=== PATIENT | female | born 1950 | race Caucasian/White ===

== ENCOUNTER 2016-12-03 18:20 | Inpatient (IN) | payer MEDICARE ==
--- NOTE | ~2016-12-03 | CR72 ---
[facility] A Service of [facility] RADIOLOGY TEXT RESULTS PATIENT: KAREN GRAHAM LOCATION: [facility] : [birth year] UNIT #: [id number] AGE: [address]: Dianna Centeno MD SEX: F ORDER DR: [id number] [facility] [address] [place], [place] [address] [id number] E MR#: [id number] Acc #: [id number] NAME: KAREN GRAHAM. : 1950 SEX: F STUDY DATE/TIME: 12/03/2016 16:41 UNIT: [facility] ROOM: STUDY DESCRIPTION: CR Chest Single View Portable Attending Physician: Dianna Centeno M.D. Ordering Physician: Dianna Centeno M.D. Primary Care Physician: No Primary Care Physician MEDICAL IMAGING REPORT This report is preliminary unless electronic signature is present EXAM Frontal chest 12/03/2016 INDICATIONS 66-year-old female with pneumonia, weakness, cough, congestion, symptoms began today, hypertension. Frontal chest compared with 11/30/2016 FINDINGS Cardiac silhouette is stable. The vascularity is unremarkable and the left lung is clear. Faint atelectasis or infiltrate in the upper lungs on the right stable to perhaps slightly improved. No effusion, pneumothorax or new dense consolidation. IMPRESSION Faint asymmetric atelectasis or infiltrate in the upper lung zone on the right stable to minimally decreased. No new opacities or other significant change. Dictated by... Karthikeyan Collins M.D. THIS IS AN ELECTRONICALLY VERIFIED REPORT Karthikeyan Collins M.D. at 12/03/2016 8:11 PM Ron TD: 12/03/2016 18:35 JOB #: [id number] MEDICAL IMAGING REPORT Page 1 of 1 COPY
--- NOTE | ~2016-12-03 | CT71 ---
[facility] A Service of [facility] RADIOLOGY TEXT RESULTS PATIENT: KAREN GRAHAM LOCATION: [facility] [id number] : [birth year] UNIT #: [id number] AGE: [address]: Samantha Sutton MD SEX: F ORDER DR: [id number] [facility] [address] [place], [place] [address] [id number] E MR#: [id number] Acc #: [id number] NAME: KAREN GRAHAM. : 1950 SEX: F STUDY DATE/TIME: 12/03/2016 17:01 UNIT: [facility] ROOM: STUDY DESCRIPTION: CT Head Wo Contrast Attending Physician: Dianna Centeno M.D. Ordering Physician: Dianna Centeno M.D. Primary Care Physician: No Primary Care Physician MEDICAL IMAGING REPORT This report is preliminary unless electronic signature is present EXAM Head CT without contrast 12/03/2016 HISTORY Weakness and confusion, onset today. TECHNIQUE Axial images were obtained without contrast and compared to previous scan from 12/19/2014. This CT exam was performed with one or more of the following radiation dose reduction techniques: automatic exposure control, adjustment of mA and/or kV according to patient size, and iterative reconstruction. FINDINGS Generalized atrophy is seen. There are chronic ischemic changes around ventricles on both sides. There is no evidence of mass lesion, hemorrhage or edema. There is a small focus of higher density in the right frontal lobe but this was noted on the previous scan and is unchanged. It likely represents a minimal calcification from previous vascular insult. No acute findings are identified. Extraaxial structures are unremarkable. IMPRESSION Atrophy with chronic ischemic changes bilaterally. No acute findings. Dictated by... Chito Jaimes M.D. THIS IS AN ELECTRONICALLY VERIFIED REPORT Chito Jaimes M.D. at 12/03/2016 10:17 PM ANDRES/felicita TD: 12/03/2016 18:36 [facility] A Service [facility] RADIOLOGY TEXT RESULTS PATIENT: KAREN GRAHAM LOCATION: [facility] [id number] : [birth year] UNIT #: [id number] AGE: [address]: Samantha Sutton MD SEX: F ORDER DR: JOB #: [id number] MEDICAL IMAGING REPORT Page 1 of 1 COPY
--- NOTE | ~2016-12-03 | HP ---
Unit #: [id number] #: [id number] Patient: KAREN GRAHAM [id number] [address] [place], [place] [address] [id number] I MR#: [id number] NAME: KAREN GRAHAM. ROOM: 93082 Age: 66 Sex: F Admission Date: 12/03/2016 : 1950 Attending Physician: Samantha Sutton M.D. Primary Care Physician: Primary Care Physician No HISTORY AND PHYSICAL CHIEF COMPLAINT Confusion. HISTORY OF PRESENT ILLNESS This 66-year-old female with cardiomyopathy, chronic pain, history of iron-deficiency anemia, is admitted for confusion. The patient was just discharged from [facility] today after treatment for what I was told was for congestive heart failure and pneumonia. Apparently, she had some psych issues as well. Will obtain records. After arriving home, her roommate noticed that she was confused and called EMS who then brought the patient, for some reason, to this hospital as opposed to [facility]. Patient is confused, hallucinating, and is oriented only to person. She recognizes, however, that she is confused. Her workup thus far is fairly unrevealing except that she is more anemic than usual. Denies melena or hematochezia, only complains of her chronic knee pain. Urine toxicology screen is positive for methadone which the patient reportedly takes, I will obtain a [facility] report. PAST MEDICAL HISTORY 1. Congestive heart failure, ejection fraction 10% to 15%, I believe this is related to ischemic cardiomyopathy although I do not have recent records from [facility]. 2. Mild B12 deficiency. 3. Iron-deficiency anemia requiring multiple transfusions. 4. Chronic pain on methadone. 5. Anxiety and depression. 6. History of hypothyroidism. 7. Hypertension. 8. DJD. 9. Peripheral vascular disease, status post left fem-pop surgery. 10. Arthroscopic knee surgery. 11. Admission 04/2013 for altered mental status. MRI at that time revealed an old ischemic insult and focal 5 x 5.5 mm lesion with hemosiderin deposit in the right frontal lobe. ALLERGIES No known drug allergies. HOME MEDICATIONS I have a discharge medication sheet that the patient brought with her listin. Symbicort 160/4.5 two puffs b.i.d. 2. Lipitor 40 mg daily. Unit #: [id number] #: [id number] Patient: KAREN GRAHAM 3. Coreg 6.25 mg b.i.d. 4. Omnicef 300 mg b.i.d. 5. Celexa 20 mg daily. 6. Plavix 75 mg daily. 7. Doxepin 50 mg two tablets h.s. 8. Lasix 40 mg daily. 9. Atarax 25 mg t.i.d. 10. Zyprexa 5 mg two tablets h.s. SOCIAL HISTORY The patient lives with a roommate. Stopped smoking about 20 years ago. Does not drink alcohol. FAMILY HISTORY CAD. REVIEW OF SYSTEMS Difficult to obtain as patient is pleasantly confused. PHYSICAL EXAMINATION VITAL SIGNS: Temperature 98.2, pulse 69, respirations 15, blood pressure 134/63, O2 saturation 96% on room air. GENERAL: Pleasantly confused 66-year-old female currently in no acute distress. HEENT: Eyes PERRLA. Extraocular muscles are intact. Pharynx benign. NECK: Supple without adenopathy or thyromegaly. CHEST: Clear. HEART: Normal S1, S2 without S3, S4 or murmur. ABDOMEN: Bowel sounds are present. No hepatosplenomegaly, tenderness or masses. EXTREMITIES: Without clubbing, cyanosis, or edema. NEUROLOGIC: Awake, alert. She is oriented to person and knows that she is in a [facility] but does not know the name of the hospital. Cranial nerves are intact. She has equal strength throughout. However, when I do sit her up she does have some balance issues. Negative pronator drift. DIAGNOSTIC STUDIES LABORATORY: Hematocrit 26.1 down from 29.6 two years ago, normal white count, MCV is 64, normal platelet count. SMA-12 BUN 30, chloride 112, CO2 is 17. Ammonia 9. Lactic acid normal. Alcohol negligible. ABG pH 7.41, pCO2 of 25, pO2 of 99, O2 saturation is 95.9%. Urine toxicology screen positive for methadone and TCA. Urinalysis trace leukocyte esterase without significant white or red cells. IMAGING: Head CT atrophy. Bilateral small vessel ischemic changes. Chest x-ray is improved. CARDIOVASCULAR: EKG shows a normal sinus rhythm, rate 61, with Q's noted inferiorly. T-wave inversion V4 through V6. ASSESSMENT 1. Confusion, possibly related to methadone and psych medications. Rule out cerebrovascular accident. 2. Iron-deficiency anemia with hemoglobin currently of 7.2. 3. Chronic pain, reportedly on methadone. 4. Anxiety and depression. Unit #: [id number] #: [id number] Patient: KAREN GRAHAM 5. Recent admission to [facility]. Patient was discharged today. She apparently was treated for congestive heart failure and pneumonia. There is some mention that she had a methadone withdrawal, depression, and acute kidney injury while hospitalized. Will obtain records. 6. History of likely ischemic cardiomyopathy. 7. Peripheral vascular disease, status post left fem-pop. PLAN 1. Transfuse, obtain Hemoccult. 2. MRI of the brain. 3. Will obtain cardiac enzymes. 4. Recent records from [facility] will be obtained. 5. SCDs for DVT prophylaxis. 6. Obtain EILEEN report. 7. Further plans pending records from [facility] and MRI scan. Dictated by Marisabel Cordova/parmjit TD: 12/03/2016 21:30 JOB #: [id number] HISTORY AND PHYSICAL Page 1 of 1 X Samantha Sutton MD X HISTORY AND PHYSICAL
--- NOTE | ~2016-12-03 | DS ---
Unit #: [id number] #: [id number] Patient: KAREN GRAHAM [id number] [address] [address] [id number] I MR#: [id number] NAME: KAREN GRAHAM ROOM: 301 Age: 66 Sex: F Admission Date: 12/03/2016 : 1950 Discharge Date: 12/04/2016 Attending Physician: Emily Foster M.D. Primary Care Physician: No Primary Care Physician DISCHARGE SUMMARY PRINCIPAL DIAGNOSES 1. Acute visual hallucinations, psychiatric in origin. 2. Hypokalemia. 3. Chronic nonanion gap metabolic acidosis, compensatory for respiratory alkalosis, improving. 4. Chronic iron deficiency anemia, status post transfusion of one unit of packed red blood cells. Discharge hemoglobin 8.3. 5. Severe depression with associated psychosis followed by Dr. Steve. 6. Chronic diastolic congestive heart failure with ejection fraction of 60% to 65% per echocardiogram on December 01, 2016, at [facility]. 7. Recent right upper lobe pneumonia, maintained on antibiotics. 8. Chronic pain syndrome maintained on methadone. 9. Hyperlipidemia. 10. History of vitamin B12 deficiency. 11. History of hypothyroidism with stable TSH. 12. Degenerative joint disease. 13. Peripheral vascular disease, status post left femoropopliteal surgery. CONSULTANTS None. DIAGNOSTIC STUDIES IMAGING: CT scan of the head without contrast on December 03, 2016, with generalized atrophy. Chronic ischemic changes around the ventricles bilaterally. Small focus of density in the right frontal lobe that is chronic. Chest x-ray on December 03, 2016, with asymmetric infiltrate in the right upper lung zone. CLINICAL HISTORY AND HOSPITAL COURSE Ms. Graham is a 66-year-old, female just discharged from [facility] on December 03, 2016, after presenting with a mild diastolic CHF exacerbation and right upper lobe pneumonia. Patient presents back to our facility with increasing confusion per her roommate. Please refer to H and P for further details. CT scan of the head without contrast was unremarkable and patient was subsequently admitted. Today, patient is significantly confused with associated visual hallucinations and psychosis. I did discuss her discharge summary with my partners at [facility] and patient appears to essentially be at her medical baseline compared to discharge yesterday. Patient was actually being seen by Dr. Steve at [facility] with whom I did speak this morning. Patient (1) depression and he feels she needs inpatient Unit #: [id number] #: [id number] Patient: KAREN GRAHAM treatment. Patient's discharge hemoglobin yesterday was 7.3, which matched presentation here yesterday. Patient has received one unit of packed red blood cells and hemoglobin is now up to 8.1. She will continue on oral iron therapy upon discharge here and can have any necessary EGD and/or colonoscopy as an outpatient. There was concern that perhaps patient had a stroke, but her neurologic exam, with the exception of visual hallucinations, is nonfocal and I do not feel that this represents stroke. I think this is more likely psychiatric in origin. I am going to place the patient back on her medications per discharge yesterday from [facility] and have [facility] evaluate for transfer. MRI of the brain is not necessary at this time. I will note patient is also mildly hypokalemic and this has been replaced orally and I will recheck prior to transfer to [facility]. DISCHARGE CONDITION Stable. DISCHARGE STATUS Transferred to [facility]. DISCHARGE MEDICATIONS 1. Potassium chloride 20 mEq p.o. daily. 2. Vistaril 25 mg p.o. t.i.d. 3. Zyprexa 10 mg at bedtime. 4. Plavix 75 mg daily. 5. Methadone 5 mg p.o. t.i.d. 6. Ferrous sulfate 325 mg b.i.d. 7. Lipitor 40 mg at bedtime. 8. Lasix 40 mg daily. 9. Omnicef 300 mg p.o. b.i.d. to stop after dose on December 10, 2016. 10. Dulera 200/5 mcg 2 puffs b.i.d. 11. Coreg 6.25 mg b.i.d. 12. Doxepin 100 mg daily. 13. Celexa 20 mg daily. DISCHARGE INSTRUCTIONS 1. Patient instructed to follow a heart healthy diet. 2. She can increase her activity as tolerated. 3. Followup: Patient will follow up per Dr. Steve's recommendations. Otherwise, she is to follow up with physicians as determined upon discharge from [facility] yesterday, December 03, 2016. Dictated by... Marisabel Simon/cuate TD: 12/04/2016 12:49 JOB #: [id number] Unit #: [id number] #: [id number] Patient: KAREN GRAHAM DISCHARGE SUMMARY Page 1 of 1 X Emily Foster MD X DISCHARGE SUMMARY
--- NOTE | ~2016-12-03 | EKG ---
PATIENT: KAREN GRAHAM UNIT #: [id number] Ventricular Rate: 61 BPM Atrial Rate: 61 BPM P-R Interval: 176 ms QRS Duration: 106 ms Q-T Interval: 460 ms QTC Calculation(Bezet): 463 ms P [place]: 50 degrees Calculated R [place]: 15 degrees Calculated T [place]: 31 degrees Diagnosis Line: Normal sinus rhythm Diagnosis Line: Biatrial enlargement Diagnosis Line: Inferior infarct (cited on or before 19-APR-2013) Diagnosis Line: T wave abnormality, consider lateral ischemia Diagnosis Line: Abnormal ECG Diagnosis Line: When compared with ECG of 19-DEC-2014 00:16, Diagnosis Line: Vent. rate has decreased BY 45 BPM Diagnosis Line: T wave inversion now evident in Anterior leads Diagnosis Line: Confirmed by MARIELOS SAMAYOA MD ([id number]) on Diagnosis Line: 12/03/2016 9:40:19 PM INTERPRETING MD: MONICA
--- NOTE | ~2016-12-03 | A ---
[facility] Therapy DATE: 12/04/16 Patient: KAREN GRAHAM Physician: RORY Address: [address] [place] [address] Room/Bed: [address] [place] [address], Zip: [place] [address] Admit Date: 12/03/16 Date of : [birth year] Height: 5 0 Weight: 138 63 NUTRITIONAL ASSESSMENT: REASON: 3 points malnutrition risk score re: 15 lb unintentional weight loss Admitting Dx: 66 y/o female admitted with confusion, anemia PMH: DJD, HTN, CHF, PVD, DEIDRA, chronic pain, cardiomyopathy, hypothyroidism, mild B12 deficiency, anxiety/depression, PNA Anthropometrics: Ht: 60", Wt: 63 kg (138 lbs), BMI: 27 (overweight) Labs: K+ 2.9, BUN 24 Meds: Methadone, Furosemide, Coreg, psych meds noted I/O & Bowel function: LBM unknown Skin Integrity: No nutritionally significant issues, no edema Assessment: Chart reviewed, eventes noted. See admitting dx and PMH as stated above. Patient remains pleasantly confused, needs continuous redirection. She is not appropriate for RD interview at this time, assessing due to reported 15 lb weight loss during malnutrition screen. Discharged yesterday from [facility], where she was treated for CHF and PNA, psych issues noted. CT showed nothing acute, confusion likely 2' methadone/psych meds per MD. Patient was transfused due to Hgb 7.2, is now 8.1. Past weights range from 133-152 lbs, current weight is 138 lbs. She is on a healthy heart diet. See RD recs below, will follow hospital course. Dx: Unintentional weight loss r/t unknown etiology AEB 3 points malnutrition risk score. Intervention: Replace K+, change to 2g sodium diet, + Vit B12, Ensure BID? Monitoring, Evaluation and Goals: 1. PO intake > 50% of meals. 2. Prevent further unintentional weight loss. 3. Improvement in labs (lytes, hemoglobin). Monitor: Per protocol, criteria to determine if above goals met Recommendations: 1. Please change diet to 2g sodium so that the patient is not restricted with fat and [facility] Therapy DATE: 12/04/16 Patient: KAREN GRAHAM Physician: LOMANN Address: [address] [place] [address] Room/Bed: 301-01 [facility], Zip: [place] [address] Admit Date: 12/03/16 Date of : [birth year] Height: 5 0 Weight: 138 63 cholesterol intake. Agree with sodium restriction noting CHF. 2. Replace lytes prn (K+ low). 3. Consider adding Vitamin B12 noting patient's hx of mild B12 deficiency. 4. Please monitor PO intake; if < 50% of meals order Ensure Enlive BID. RD will follow hospital course Moderate nutrition risk Respectfully, Estephania Roach, DARIAN, LD [employer] [facility] [employer] cc: client file
[2016-12-03 16:51] LABS: BASOPHIL# 0.1 X10e3 (0-0.3); BASOPHIL% 1.8 % (0-2.5); EOSINOPHIL# 0.1 X10e3 (0-0.7); EOSINOPHIL% 1.2 % (0.0-7.0); HEMATOCRIT 26.1 % (35.0-45.0); HEMOGLOBIN 7.2 gm/dL (12.0-16.0); LYMPHOCYTE# 1.6 X10e3 (1.0-3.5); LYMPHOCYTE% 30.3 % (17.0-45.0); MEAN CELL VOLUME 64.4 FL (83-96); MEAN CORPUSCULAR HEMOGLOBIN 17.9 PG (28-34); MEAN CORPUSCULAR HGB CONC 27.7 g/dL (30-36); MEAN PLATELET VOLUME 8.1 FL (6.5-11.5); MONOCYTE# 0.7 X10e3 (0-1.0); MONOCYTE% 12.9 % (3.0-12.0); NEUTROPHIL# 2.8 X10e3 (1.5-7.1); NEUTROPHIL% 53.8 % (40-75); PLATELET COUNT 321 X10e3 (140-420); RED BLOOD COUNT 4.05 X10e (3.90-5.30); RED CELL DISTRIBUTION WIDTH 19.4 % (11.0-15.5); WHITE BLOOD COUNT 5.3 X10e3 (4.0-10.5)
[2016-12-03 16:52] LABS: DIFF IND YES
[2016-12-03 17:00] LABS: ARTERIAL BLD GAS O2 SATURATION 95.9 % (90.0-100.0); ARTERIAL BLOOD GAS CARBOXY HB 1.1 %sat (0.0-9.0); ARTERIAL BLOOD GAS HCO3 15.9 mmol/L; ARTERIAL BLOOD GAS PO2 99.7 mmHg (80.0-100); ARTERIAL BLOOD GAS pH 7.412 (7.350-7.450)
[2016-12-03 17:00] LABS: INR 1.2
[2016-12-03 17:01] LABS: ARTERIAL BLOOD GAS ALLEN TEST NORMAL; ARTERIAL BLOOD GAS ART SITE RIGHT RADIAL; ARTERIAL DRAW? YES
[2016-12-03 17:09] LABS: ANISOCYTOSIS SL; HYPOCHROMIA SL; PLATELET ESTIMATE NORMAL (NORMAL)
[2016-12-03 17:10] LABS: MICROCYTOSIS SL; TEAR DROP CELLS PRESENT
[2016-12-03 17:11] LABS: ALBUMIN SERUM 4.1 g/dL (3.5-5.0); ALKALINE PHOSPHATASE 53 U/L (32-92); ALT (SGPT) 20 U/L (10-40); AST (SGOT) 25 U/L (10-42); BILIRUBIN, DIRECT 0.1 mg/dL (0.0-0.2); BILIRUBIN,INDIRECT 0.7 mg/dL (0.0-0.9); BILIRUBIN,TOTAL 0.8 mg/dL (0.2-2.0); BLOOD UREA NITROGEN 30 mg/dL (9-23); BUN/CREATININE RATIO 27.27; CALCIUM SERUM 9.2 mg/dL (8.4-10.2); CARBON DIOXIDE 17 mmol/L (22-31); CHLORIDE 112 mmol/L (100-111); CREATININE SERUM 1.1 mg/dL (0.6-1.4); GLOM FILT RATE Estimated 51.9 mL/min (>60); GLUCOSE FASTING 78 mg/dL (70-110); POTASSIUM 3.7 mmol/L (3.5-5.1); PROTEIN TOTAL SERUM 7.2 g/dL (6.0-8.3); SODIUM 139 mmol/L (135-145)
[2016-12-03 17:13] LABS: ALCOHOL BLOOD <5 mg/dL (0)
[2016-12-03 17:51] LABS: URINE SOURCE CLEAN CATCH
[2016-12-03 18:07] LABS: URINE APPEARANCE CLEAR; URINE BILIRUBIN NEG (NEG); URINE BLOOD NEG (NEG); URINE COLOR YELLOW; URINE GLUCOSE NEG (NEG); URINE KETONE NEG (NEG); URINE LEUKOCYTE ESTERASE TRACE (NEG); URINE NITRATE NEG (NEG); URINE PROTEIN NEG (NEG); URINE SPECIFIC GRAVITY 1.014 (1.003-1.035); URINE UROBILINOGEN 0.2 MG/DL (NEG)
[2016-12-03 18:13] LABS: URBCS1 AUWI 0-2 /[HPF] (0-2); URINE BACTERIA AUWI NEG (NEGATIVE); URINE SQUAMOUS EPITHELIAL CELL NONE SEEN /[HPF]; UWBCS1 AUWI 0-2 (0-5)
[2016-12-03 18:16] LABS: CULTURE INDICATED? NO
[2016-12-03 18:19] LABS: AMPHETAMINE NEG (NEG); BARBITURATES NEG (NEG); BENZODIAZEPINES NEG (NEG); COCAINE NEG (NEG); MARIJUANA NEG (NEG); OPIATES NEG (NEG); TRICYCLIC ANTIDEPRESSANTS POS (NEG); U METHADONE POS (NEG)
[~2016-12-03 18:20] MED LIST: AMBIEN10 MG PO; AUGMENTIN875 MG PO; BYSTOLIC5 MG PO; CLONIDINE HCL0.1 MG PO; CYANOCOBALAM1000 MCG PO; CYMBALTA20 MG PO; FERRO-TIME325 MG PO; FOLIC ACID1 MG PO; FUROSEMIDE40 MG PO; KEPPRA500 M2 PO; KLONOPIN0.5 MG PO; LEVAQUIN750 MG PO; LEVOTHYROXINE75 MC1 PO; LEXAPRO20 MG PO; LIPITOR40 MG PO; LISINOPRIL10 MG PO; METHADONE HCL10 MG PO; METHADONE PO; METOPROLOL SUCC25 MG PO; PERCOCET 10/3251 TAB PO; QUETIAPINE FUM100 MG PO; ST. JOSEPH ASPI81 M3 PO; ZOCOR20 MG PO; [UNRECOGNIZED DRUG - CODE]
[2016-12-03 22:28] LABS: %MB 4.8 % (0.0-4.0); MB 6.4 ng/ml
[2016-12-04 05:39] LABS: BASOPHIL# 0.1 X10e3 (0-0.3); BASOPHIL% 1.3 % (0-2.5); EOSINOPHIL# 0.2 X10e3 (0-0.7); EOSINOPHIL% 3.6 % (0.0-7.0); HEMATOCRIT 27.2 % (35.0-45.0); HEMOGLOBIN 8.1 gm/dL (12.0-16.0); LYMPHOCYTE# 1.7 X10e3 (1.0-3.5); MEAN CELL VOLUME 64.9 FL (83-96); MEAN CORPUSCULAR HEMOGLOBIN 19.4 PG (28-34); MEAN CORPUSCULAR HGB CONC 29.9 g/dL (30-36); MEAN PLATELET VOLUME 8.4 FL (6.5-11.5); MONOCYTE# 0.4 X10e3 (0-1.0); NEUTROPHIL# 1.9 X10e3 (1.5-7.1); NEUTROPHIL% 45.1 % (40-75); PLATELET COUNT 311 X10e3 (140-420); RED BLOOD COUNT 4.18 X10e (3.90-5.30); RED CELL DISTRIBUTION WIDTH 19.9 % (11.0-15.5); WHITE BLOOD COUNT 4.2 X10e3 (4.0-10.5)
[2016-12-04 05:40] LABS: DIFF IND NO
[2016-12-04 06:35] LABS: BUN/CREATININE RATIO 26.66; CALCIUM SERUM 8.7 mg/dL (8.4-10.2); CREATININE SERUM 0.9 mg/dL (0.6-1.4); GLOM FILT RATE Estimated 66.2 mL/min (>60)
[2016-12-04 06:38] LABS: POTASSIUM 2.9 mmol/L (3.5-5.1)
[2016-12-04 06:58] LABS: %MB 4.7 % (0.0-4.0); MB 5.7 ng/ml
== END 2016-12-05 00:49 | DRG 812 ==
LOC: CED 18:20 → CEDOF 21:00 → C3A PCU 12-04 00:02
PROVIDERS: Internal Medicine; Student in an Organized Health Care Education/Training Program
PROC: 30233N1 Transfusion of Nonautologous Red Blood Cells into Peripheral Vein, Percutaneous Approach (ICD-10-PCS; principal; 2016-12-03)
DX: D50.9 Iron deficiency anemia, unspecified (principal); E87.2 Acidosis; I11.0 Hypertensive heart disease with heart failure; I50.32 Chronic diastolic (congestive) heart failure; I25.5 Ischemic cardiomyopathy; G89.4 Chronic pain syndrome; Z79.891 Long term (current) use of opiate analgesic; Z87.891 Personal history of nicotine dependence; F41.9 Anxiety disorder, unspecified; F32.9 Major depressive disorder, single episode, unspecified; F29 Unspecified psychosis not due to a substance or known physiological condition; E03.9 Hypothyroidism, unspecified; M19.90 Unspecified osteoarthritis, unspecified site; E87.6 Hypokalemia; E78.5 Hyperlipidemia, unspecified
CPT/HCPCS: 36415; 36600; 70450; 71010; 80048; 80076; 80307; 81003; 82140; 82550; 82553; 82803; 82947; 83605; 84132; 84443; 84484; 85025; 85610; 85730; 86850; 86870; 86885; 86900; 86901; 86905; 86922; 93005; 99285; G0480; J0360; J0515; J1630; P9016